=== PATIENT | male | born 1970 | race Two or more races ===

== ENCOUNTER 2020-12-10 09:51 | Emergency (ER) | payer SELFPAY ==
[~2020-12-10] VITALS: Ht 167.6 cm; Wt 65.8 kg
[2020-12-10 10:06] VITALS: BP 144/107
--- NOTE | 2020-12-10 10:14 | NUR ---
[id number] C/P LOWER BACK PAIN S/P GLF 3 DAYS AGO. RATES LOWER BACK PAIN 5/10. DENIES SOB. RESPIRATION REGULAR AND UNLABORED. WILL CONTINUE TO MONITOR THE PATIENT.
[2020-12-10] MEDS ORDERED: IBUP-1957 PO (12:08)
--- NOTE | 2020-12-10 12:50 | NUR ---
"SS Consult: SS Consult requested for Homelessness. The pt. is a 50-year old male. The pt. appears disheveled is A&O X4 and makes good eye contact. Pt.s speech iand thought process are WNL. Pt.s mood is euthymic. SAMEER explored pt.s living situation. Pt. states he has been homeless for a 2 years. SAMEER explored pt.s mental health Hx. Pt. denies any mental health illness or psychotropic medications. SAMEER explored pt.s drug & ETOH use. Patient denies drug or ETOH use. Pt. states he is ambulatory. SAMEER explored pt.s support system. Pt. states his entire family is in [place]. D/C PLAN: SAMEER Offred pt. skilled nursing placement and pt. accepted. Pt. will go to [facility] [[address] [place] [address]; [phone]] Intake is at 4:30 pm. Pt. will go via bus and pr. expressed understanding and is agreeable. Pt. signed homeless waiver and it was placed in the chart. SAMEER provided pt. with homeless resources and he accepted them : Year-round shelters: [facility] [address] [place] [place] [address] ; [facility] [place] [address] [place] [address]; [place] [facility] [id number] [facility] [address] Winter Shelters: [place] Provider: [facility] [place] Address: [address] [place] [address], [address] # of Beds: 47 Population Served: [facility] 6 | [facility] Brittney Raphael [place] Provider: [facility] Address: [address], [address] # of Beds: 66 Population Served: [facility] [employer] [place] Provider: [facility] Address: [address] [facility], [address] # of Beds: 56 Population Served: [facility] Venancio [place] Provider: /[facility] Address: [address] [facility], [address] # of Beds: 49 Population Served: [facility] SPA 8 | [place] Provider: First [facility] Serve Address: [address] [facility]. [place], [address] # of Beds: 37 Population Served: [facility] Hygiene: [facility]: [address] [place] ; [facility] [address] [facility] ; [facility] [address] [place] . Food Resources: [place] [employer] [facility] at [facility]- [address] [place]; Meet Each Need with Dignity ([facility]) [address] [facility] [place]; [facility] [address] [facility]; [facility] 0427 [facility] Mental Health resources provided: [facility] [address] [place], [place] [id number] ; [facility] [address] [facility] [address], [place], [place] [id number] ; [facility] [address] Dr[place], [place] [id number] ; [facility] [address] [place], [place] [address] Healthcare Clinics: [facility] [address] [facility], [address] [place]. [place] ; [facility] [address] [facility] [address] [place] [address]; [facility] [place] [address] [place] [address] [phone]) [phone] Counseling--Outpatient [facility] [address] [facility], [facility] [place], [place] [id number] (Specializes in in-depth psychotherapy for emotional distress: anxiety, depression, interpersonal conflicts, life transitions, childhood abuse) [place] [id number] [place] [address] (Assist with solving problem marital difficulties, separation & divorce, aging parents, & grief, chronic & terminal illness) [facility] [address] [place], [place] [address] (Deal with loss & grief, anxiety, marital difficulties) Homebound/Mental Health Services [address] [facility] [address] [place], [place] [address] (Provide in-home mental services to people who are incapable of leaving their homes) [facility] of [facility] Elderly Senior Service/Resource Center [address] [place] [address] [facility] [address] [facility] [place] [address] PSYCHIATRIC OUTPATIENT SERVICES [facility] Partial Hospitalization and Intensive Outpatient Program (Managed Care and [place] Only)[address] Seth [facility] [phone] [facility] Partial Hospitalization and Outpatient [id number] [place] [place], [place] [phone] [facility] [place] [id number]. [address] [place], [place] [phone] [facility] Partial Hospitalization and Outpatient [id number] [place], [phone] Substance Abuse resources provided included: [facility] Substance Abuse Self-Helpline (SAS) ; CRI -HELP [address] [facility]. [place] [address] ; [facility] [address] [facility] [address] ; [facility] [address] [facility] [address] ; [facility] [address] [facility] [address] ; [facility] [address] [address] ; [facility] [address] [facility] [phone] ; [facility] Substance Abuse Helpline(SAS)[facility] [place] ; [facility] ; [facility] [place]; [facility] [place]; C[facility] [place]; [facility] Jose Montemayor; [facility] [place]; [facility] [place]; [facility]; [facility] Charlene Trimble; Alcoholics Anonymous -SFV; Ot-Ggmr-Xbxbuul ; Marijuana Anonymous -SFV; Narcotics Anonymous [email or web address];"
--- NOTE | 2020-12-10 13:22 | NUR ---
Patient discharged in stable condition. Written and verbal after care instructions given. Patient verbalizes understanding of instruction.
== END 2020-12-10 13:23 | disposition home or self-care (01) ==
LOC: ER 09:54
DX: S22.42XA Multiple fractures of ribs, left side, initial encounter for closed fracture (principal); I10 Essential (primary) hypertension; W18.39XA Other fall on same level, initial encounter; Y93.89 Activity, other specified; Y92.89 Other specified places as the place of occurrence of the external cause; Y99.8 Other external cause status
CPT/HCPCS: 71100-TC